=== PATIENT | male | born 1950 | race American Indian/Alaskan Native ===

== ENCOUNTER 2018-10-04 11:22 | Emergency (ER) | payer MEDICARE, OTHER ==
[~2018-10-04] VITALS: Ht 170.2 cm; Wt 116.4 kg
[~2018-10-04 11:22] MED LIST: ASPI81TA52 PO; BUPR300T86 PO; CHOL400T57 PO; EXEN5PEN2 SQ; FAMO-1 PO; GLIM4TAB79 PO; HYDR1TAB PO; IBUP-1984 PO; LISI-644 PO; LORA10CA PO; MELA1CAP PO; METF500T PO; OMEG1CAP54 PO; PIOG45TA PO; ROSU20TA PO; UBID1CAP54 PO; VITA-268 PO; ZIN220C PO; ZOF4T PO; [UNRECOGNIZED DRUG - CODE] PO; vitamin C PO
[2018-10-04 11:57] VITALS: BP 162/54
--- NOTE | 2018-10-04 12:11 | NUR ---
POISON CONTROL CALLED INSTRUCTED TO RECHECK PTS BLOOD SUGAR IN 1HR. SHE STATES PT MIGHT HAVE N/V/D TODAY AND TOMORROW, AND SHOULD NOT HAVE ANY DROP IN BS PT TAKES HIGH DOSES OR OTHER ORAL HYPERGLYCEMIC MEDS. SHE STATES PT COULD TAKE SMALLER DOSES OF OTHER MEDS TODAY OR RESTART TOMORROW. SHE STATE PT CAN BE DCD AFTER BS RECHECK AND ADVISE PT TO CONTACT PMD RE NEXT TRULICITY DOSE.
== END 2018-10-04 13:04 | disposition home or self-care (01) ==
LOC: ER 11:24
DX: T38.3X1A Poisoning by insulin and oral hypoglycemic [antidiabetic] drugs, accidental (unintentional), initial encounter (principal); I25.10 Atherosclerotic heart disease of native coronary artery without angina pectoris; E78.00 Pure hypercholesterolemia, unspecified; I10 Essential (primary) hypertension; I25.2 Old myocardial infarction; E11.9 Type 2 diabetes mellitus without complications; Z95.5 Presence of coronary angioplasty implant and graft; Z79.82 Long term (current) use of aspirin; Z79.899 Other long term (current) drug therapy; Z88.8 Allergy status to other drugs, medicaments and biological substances; Z88.1 Allergy status to other antibiotic agents; Y92.89 Other specified places as the place of occurrence of the external cause
CPT/HCPCS: 82948; 99282

== ENCOUNTER 2019-04-16 19:12 | Observation (INO) | payer OTHER, MEDICARE ==
[~2019-04-16] VITALS: Ht 170.2 cm; Wt 111.0 kg
[~2019-04-16 19:12] MED LIST changes: +BACDS PO; +GLIM4TAB4 PO; -GLIM4TAB79 PO; -ROSU20TA PO; +ROSU20TA2 PO
[2019-04-16 20:13] LABS: CLARITY,URINE CLEAR (Clear); COLOR,URINE YELLOW (Yellow); GLUCOSE, URINE >=1000 mg/dl (Neg); KETONES,URINE NEGATIVE (Neg); LEUKOCYTE ESTERASE ,URINE NEGATIVE (Neg); NITRITES, URINE NEGATIVE (Neg); OCCULT BLOOD,URINE NEGATIVE (Neg); PH,URINE 5.5 (4.8-8.0); PROTEIN,URINE NEGATIVE (Neg); UA COLLECTION TYPE VOIDED; UROBILINOGEN,URINE 0.2 E.U/dL (0.2-1.0)
[2019-04-16 20:20] LABS: BACTERIA,URINE FEW /HPF (Neg); RBC,URINE NONE SEEN /HPF (0-2); SQUAMOUS EPITHELIAL CELL,UR FEW /LPF (FEW); WBC,URINE 0-4 /HPF (0-4)
[2019-04-16] MEDS ORDERED: CefTRIAXone 2gm/D5W 50ml 50 ML IV ONE (20:30)
[2019-04-16] MEDS ORDERED: normal saline 1000ML IV soln IV ONE (20:30)
[2019-04-16 20:59] LABS: ALANINE AMINOTRANSFERASE 32 U/L (12-78); ALBUMIN 3.4 G/DL (3.4-5.0); ALBUMIN/GLOBULIN RATIO 0.8 (1.1-1.5); ALKALINE PHOSPHATASE 93 IU/L (46-116); ANION GAP 12 (8-16); ASPARTATE AMINO TRANSFERASE 17 U/L (10-37); BILIRUBIN,TOTAL 0.6 MG/DL (0.1-1.0); BLOOD UREA NITROGEN 27 MG/DL (7-18); BUN/CREATININE RATIO 17.4 (5.4-32.0); CALCIUM 9.2 MG/DL (8.5-10.1); CHLORIDE 103 MMOL/L (99-107); CREATININE 1.55 MG/DL (0.60-1.10); GLUCOSE 355 MG/DL (70-104); POTASSIUM 4.5 MMOL/L (3.5-5.1); SODIUM 137 MMOL/L (135-145); TOTAL CARBON DIOXIDE 22.5 MMOL/L (24-32); TOTAL PROTEIN 7.5 G/DL (6.4-8.2); eGFR 45 ML/MIN
[2019-04-16 21:00] LABS: PARTIAL THROMBOPLASTIN TIME 24 SECONDS (22-32)
--- NOTE | 2019-04-16 21:00 | NUR ---
pt SBP 77 on right arm and 60 SBP left. Manual bp same. MD notifed. Pt given 2L fluid bolus. SPB increased to 108 SBP.
[2019-04-16 21:04] LABS: BASOPHILS % (AUTO) 0.3 % (0-1); EOSINOPHILS % (AUTO) 0.5 % (0-6); HEMOGLOBIN 13.8 g/dl (14.0-17.9); LYMPHOCYTES # (AUTO) 0.3 X10'3 (1.1-4.8); LYMPHOCYTES % (AUTO) 3.9 % (21-51); MEAN CORPUSCULAR HEMOGLOBIN 29.8 PG (27.0-31.0); MEAN CORPUSCULAR HGB CONC 32.8 g/dL (33.0-36.5); MEAN PLATELET VOLUME 9.2 FL (7.4-10.4); MONOCYTES # (AUTO) 0.1 X10'3 (0-0.9); MONOCYTES % (AUTO) 1.8 % (2-12); NEUTROPHILS # (AUTO) 6.5 X10'3 (1.8-7.7); NEUTROPHILS % (AUTO) 93.5 % (42-75); PLATELET COUNT 182 X10'3 (140-440); RED BLOOD COUNT 4.62 X10'6 (4.70-6.10); WHITE BLOOD COUNT 6.9 X10'3 (4.5-11.0)
[2019-04-16] MEDS ORDERED: normal saline 1000ML IV soln IVB ONE (21:15)
[2019-04-16] MEDS ORDERED: levoFLOXACIN-Levaquin 750MG/D5 150 ML IV STA (21:24)
[2019-04-16] MEDS ORDERED: ondansetron/PF 4mg/2ml inj IV PRN (22:05)
[2019-04-16] MEDS ORDERED: glucagon, human recombinant 1mg kit SUBCUT PRN (22:05)
[2019-04-16] MEDS ORDERED: potassium Cl 20 mEq SR tablet PO PRN ×2 (22:05)
[2019-04-16] MEDS ORDERED: potassium CL 10mEq/100ml bag 100 ML IV PRN ×2 (22:05)
[2019-04-16] MEDS ORDERED: magnesium Cl slow-release 64mg tablet PO PRN (22:05)
[2019-04-16] MEDS ORDERED: dextrose ORAL solution 15 GM/59 ML bottle PO PRN ×2 (22:05)
[2019-04-16] MEDS ORDERED: magnesium 4gm in 100ml NS 100 ML IV PRN (22:05)
[2019-04-16] MEDS ORDERED: dextrose 50%-water 50ml dispensing syringe IV PRN ×2 (22:05)
[2019-04-16] MEDS ORDERED: magnesium hydroxide 30ml (MOM) UD suspension PO PRN (22:05)
[2019-04-16] MEDS ORDERED: acetaminophen 325mg tablet PO PRN (22:05)
[2019-04-16] MEDS ORDERED: mag hydrox/Alum hydrox/simeth 30ml oral suspension PO PRN (22:05)
[2019-04-16] MEDS ORDERED: magnesium 2GM in 50ml NS 50 ML IV PRN (22:05)
[2019-04-16] MEDS ORDERED: MESSAGE TO PHARMACY PO ONE (22:05)
[2019-04-16] MEDS: normal saline 1000ml 1,000 ML IV SCH (22:24)
[2019-04-16 22:40] LABS: HEMOGLOBIN A1C 12.8 % (4.5-6.2)
[2019-04-17] VITALS: BP 85/50
[2019-04-17] MEDS: insulin Lispro (HumaLOG) vial - multi-dose SQ SCH ×4 (00:13→18:52)
[2019-04-17] MEDS ORDERED: HYDROcodone/acetaminophen 10/325mg tab PO PRN (00:45)
[2019-04-17 05:18] VITALS: BP 111/70
[2019-04-17 05:23] LABS: BASOPHILS % (AUTO) 0.2 % (0-1); EOSINOPHILS % (AUTO) 0.1 % (0-6); HEMATOCRIT 36.4 % (42.0-52.0); HEMOGLOBIN 12.2 g/dl (14.0-17.9); LYMPHOCYTES # (AUTO) 0.2 X10'3 (1.1-4.8); LYMPHOCYTES % (AUTO) 2.4 % (21-51); MEAN CORPUSCULAR HEMOGLOBIN 30.4 PG (27.0-31.0); MEAN CORPUSCULAR HGB CONC 33.6 g/dL (33.0-36.5); MEAN CORPUSCULAR VOLUME 90.4 FL (78-98); MEAN PLATELET VOLUME 8.9 FL (7.4-10.4); MONOCYTES # (AUTO) 0.4 X10'3 (0-0.9); MONOCYTES % (AUTO) 4.1 % (2-12); NEUTROPHILS # (AUTO) 8.6 X10'3 (1.8-7.7); NEUTROPHILS % (AUTO) 93.2 % (42-75); PLATELET COUNT 130 X10'3 (140-440); RED BLOOD COUNT 4.03 X10'6 (4.70-6.10); WHITE BLOOD COUNT 9.2 X10'3 (4.5-11.0)
[2019-04-17 05:39] LABS: ALANINE AMINOTRANSFERASE 27 U/L (12-78); ALBUMIN 2.5 G/DL (3.4-5.0); ALBUMIN/GLOBULIN RATIO 0.7 (1.1-1.5); ALKALINE PHOSPHATASE 66 IU/L (46-116); ANION GAP 10 (8-16); ASPARTATE AMINO TRANSFERASE 18 U/L (10-37); BILIRUBIN,TOTAL 0.4 MG/DL (0.1-1.0); BLOOD UREA NITROGEN 24 MG/DL (7-18); CHLORIDE 109 MMOL/L (99-107); CREATININE 1.26 MG/DL (0.60-1.10); GLUCOSE 290 MG/DL (70-104); MAGNESIUM 2.1 MG/DL (1.5-2.4); POTASSIUM 4.6 MMOL/L (3.5-5.1); SODIUM 141 MMOL/L (135-145); TOTAL CARBON DIOXIDE 22.5 MMOL/L (24-32); eGFR 57 ML/MIN
--- NOTE | 2019-04-17 06:31 | NUR ---
Problems reprioritized. Patient report given, questions answered & plan of care reviewed with Valentine ZIEGLER.
--- NOTE | 2019-04-17 06:45 | NUR ---
Patient in room [facility] 340. I have received report from Phu ZIEGLER and had the opportunity to ask questions and assume patient care.
[2019-04-17 07:00] VITALS: BP 113/67
[2019-04-17] MEDS: vitamin D (cholecalciferol) 1,000 unit tablet PO SCH (07:30)
[2019-04-17] MEDS: zinc sulfate 220mg capsule PO SCH (07:30)
[2019-04-17] MEDS: vitamin B comp w/Vit. C tab 1 TAB TABLET PO SCH (07:30)
[2019-04-17] MEDS: loratadine 10mg tablet PO SCH (07:30)
[2019-04-17] MEDS: multivitamins, therapeutics tablet PO SCH (07:30)
[2019-04-17] MEDS: lisinopril 20mg tablet PO SCH (07:31)
[2019-04-17] MEDS: buPROPion SR 150mg tablet PO SCH ×2 (07:31→20:25)
[2019-04-17] MEDS: famotidine 20mg tablet PO SCH (07:31)
[2019-04-17] MEDS: aspirin 81mg tablet.DR PO SCH (07:31)
[2019-04-17] MEDS: OMEGA-3/DHA/EPA/FISH OIL 1 EACH CAPSULE.DR PO SCH (07:32)
[2019-04-17] MEDS: enoxaparin 40mg/0.4ml syringe SQ SCH (07:33)
[2019-04-17] MEDS ORDERED: non-formulary drug (Ubidecarenone/Vit E Acetate (Co Q-10 100 Mg Softgel) 1 EACH) PO SCH (08:00)
[2019-04-17] MEDS: K and/or MAG REPLACEMENT MC SCH (08:00)
[2019-04-17] MEDS ORDERED: VITAMIN C 500 MG PO SCH (08:00)
[2019-04-17] MEDS ORDERED: ROSUVASTATIN CALCIUM 20 MG PO SCH (08:00)
[2019-04-17] MEDS: normal saline 1000ml 1,000 ML IV SCH ×4 (08:01→20:32)
[2019-04-17 11:00] VITALS: BP 123/48
--- NOTE | 2019-04-17 11:00 | NUR ---
patient seen by DR Perez, all cares continue. Diabetic education given to patient and . Stable at time of report
[2019-04-17] MEDS ORDERED: METO-411 PO (14:00)
--- NOTE | 2019-04-17 16:07 | NUR ---
DM consult: Pt with A1c 12.8. Attempted visit with patient at bedside however pt was sleeping and did not wake with verbal cues. Family member at bedside. Written DM ed with referral to outpatient DM class and RD contact information provided. Per H&P pt states he checks his sugars in the morning and they're in the mid to high 100s and pt hasn't ever calibrated his glucometer thus will likely need a new meter. Pt admit with severe hypotension secondary to volume depletion and uncontrolled diabetes resolved with IV fluids per H&P. Pt currently on heart healthy CHO controlled diet with documented 75% PO intake likely meeting nutrient needs. LBM 04/16. No edema or wounds. Will continue to follow. Recommendations: 1) Continue heart healthy CHO controlled diet 2) Monitor need for f/u verbal DM ed 3) Wt per rx Addendum: 04/17/19 at [address] Amended: Links added.
--- NOTE | 2019-04-17 18:05 | NUR ---
Patient in room [facility]. I have received report from Valentine ZIEGLER and had the opportunity to ask questions and assume patient care.
--- NOTE | 2019-04-17 18:14 | NUR ---
Problems reprioritized. Patient report given, questions answered & plan of care reviewed with Phu ZIEGLER.
[2019-04-17 20:00] VITALS: BP 108/53
[2019-04-17] MEDS ORDERED: levoFLOXACIN-Levaquin 750MG/D5 150 ML IV SCH (21:00)
[2019-04-17] MEDS ORDERED: insulin glargine (Lantus) pen - multi-dose SQ SCH (21:00)
[2019-04-17] MEDS ORDERED: atorvastatin 10mg tablet PO SCH (21:00)
[2019-04-17] MEDS ORDERED: insulin glargine (Lantus) pen - multi-dose SQ ONE (21:35)
[2019-04-18] VITALS: BP 116/64
[2019-04-18 05:31] LABS: ALANINE AMINOTRANSFERASE 28 U/L (12-78); ALBUMIN 2.2 G/DL (3.4-5.0); ALBUMIN/GLOBULIN RATIO 0.6 (1.1-1.5); ALKALINE PHOSPHATASE 60 IU/L (46-116); ANION GAP 11 (8-16); ASPARTATE AMINO TRANSFERASE 24 U/L (10-37); BILIRUBIN,TOTAL 0.3 MG/DL (0.1-1.0); BLOOD UREA NITROGEN 15 MG/DL (7-18); BUN/CREATININE RATIO 18.8 (5.4-32.0); CALCIUM 7.8 MG/DL (8.5-10.1); CHLORIDE 109 MMOL/L (99-107); GLUCOSE 104 MG/DL (70-104); MAGNESIUM 1.9 MG/DL (1.5-2.4); POTASSIUM 3.9 MMOL/L (3.5-5.1); SODIUM 141 MMOL/L (135-145); TOTAL CARBON DIOXIDE 21.5 MMOL/L (24-32); TOTAL PROTEIN 5.8 G/DL (6.4-8.2); eGFR > 90 ML/MIN
[2019-04-18 05:43] LABS: BASOPHILS % (AUTO) 0.8 % (0-1); EOSINOPHILS % (AUTO) 0.9 % (0-6); HEMATOCRIT 36.5 % (42.0-52.0); HEMOGLOBIN 12.1 g/dl (14.0-17.9); LYMPHOCYTES # (AUTO) 0.5 X10'3 (1.1-4.8); MEAN CORPUSCULAR HEMOGLOBIN 30.4 PG (27.0-31.0); MEAN CORPUSCULAR HGB CONC 33.1 g/dL (33.0-36.5); MEAN CORPUSCULAR VOLUME 91.9 FL (78-98); MEAN PLATELET VOLUME 9.1 FL (7.4-10.4); MONOCYTES # (AUTO) 0.6 X10'3 (0-0.9); MONOCYTES % (AUTO) 12.8 % (2-12); NEUTROPHILS # (AUTO) 3.6 X10'3 (1.8-7.7); NEUTROPHILS % (AUTO) 74.5 % (42-75); PLATELET COUNT 117 X10'3 (140-440); RED BLOOD COUNT 3.97 X10'6 (4.70-6.10); WHITE BLOOD COUNT 4.8 X10'3 (4.5-11.0)
[2019-04-18] MEDS: normal saline 1000ml 1,000 ML IV SCH (05:57)
--- NOTE | 2019-04-18 06:17 | NUR ---
Problems reprioritized. Patient report given, questions answered & plan of care reviewed with Valentine ZIEGLER.
--- NOTE | 2019-04-18 06:21 | NUR ---
Patient in room [facility] 340. I have received report from Phu ZIEGLER and had the opportunity to ask questions and assume patient care.
[2019-04-18 07:25] VITALS: BP 108/53
[2019-04-18] MEDS: vitamin B comp w/Vit. C tab 1 TAB TABLET PO SCH (07:29)
[2019-04-18] MEDS: enoxaparin 40mg/0.4ml syringe SQ SCH (07:29)
[2019-04-18] MEDS: famotidine 20mg tablet PO SCH (07:30)
[2019-04-18] MEDS: lisinopril 20mg tablet PO SCH (07:30)
[2019-04-18] MEDS: buPROPion SR 150mg tablet PO SCH (07:30)
[2019-04-18] MEDS: vitamin D (cholecalciferol) 1,000 unit tablet PO SCH (07:30)
[2019-04-18] MEDS: zinc sulfate 220mg capsule PO SCH (07:30)
[2019-04-18] MEDS: aspirin 81mg tablet.DR PO SCH (07:30)
[2019-04-18] MEDS: loratadine 10mg tablet PO SCH (07:30)
[2019-04-18] MEDS: multivitamins, therapeutics tablet PO SCH (07:30)
[2019-04-18] MEDS: K and/or MAG REPLACEMENT MC SCH (07:38)
[2019-04-18] MEDS: OMEGA-3/DHA/EPA/FISH OIL 1 EACH CAPSULE.DR PO SCH (07:38)
[2019-04-18] MEDS ORDERED: metoprolol succinate 25mg (24-HOUR) SR. Tablet PO SCH (08:00)
[2019-04-18] MEDS ORDERED: non-formulary drug (Metoprolol Succinate 1 TAB) PO SCH (08:00)
[2019-04-18] MEDS: insulin Lispro (HumaLOG) vial - multi-dose SQ SCH (09:56)
[2019-04-18 11:44] VITALS: BP 96/53
--- NOTE | 2019-04-18 12:23 | NUR ---
patient appears upset at beginning of shift, would not talk about why, but stated that he didn't get much sleep and was not wanting to stay , patient seen by Dr Boston, and wants to go AMA. DR Boston aware. IV removed. patient encouraged to attend Diabetic class. patient stated " I have been a diabetic for 20years been to every class you can think of" Left floor to drive himself home 1230hrs.
== END 2019-04-18 12:20 | disposition left against medical advice (07) ==
LOC: ER 19:13 → SUR 3N 23:11 → CMPBEDREQ 23:16
PROVIDERS: ADMIT Family Medicine; ATTEND Family Medicine
DX: E11.9 Type 2 diabetes mellitus without complications (principal); I25.10 Atherosclerotic heart disease of native coronary artery without angina pectoris; E78.5 Hyperlipidemia, unspecified; I25.2 Old myocardial infarction; Z79.82 Long term (current) use of aspirin; E78.00 Pure hypercholesterolemia, unspecified; I12.9 Hypertensive chronic kidney disease with stage 1 through stage 4 chronic kidney disease, or unspecified chronic kidney disease; N18.9 Chronic kidney disease, unspecified; N39.0 Urinary tract infection, site not specified; Z87.891 Personal history of nicotine dependence
CPT/HCPCS: 36415; 71045; 80053; 81001; 82948; 83036; 83605; 83735; 84145; 85025; 85610; 85730; 87040; 87081; 96365; 96366; 96367; 96372; 99284; G0378; J0696; J1815; J1956; J7030; J1650

== ENCOUNTER 2020-10-17 12:10 | Emergency (ER) | payer MEDICARE, OTHER ==
[~2020-10-17] VITALS: Ht 170.2 cm; Wt 108.2 kg
[~2020-10-17 12:10] MED LIST changes: -BACDS PO; -EXEN5PEN2 SQ; -GLIM4TAB4 PO; +GLIM4TAB7 PO; +METO-411 PO; -ZIN220C PO
[2020-10-17 12:49] LABS: CLARITY,URINE CLEAR (Clear); COLOR,URINE YELLOW (Yellow); GLUCOSE, URINE >=1000 mg/dl (Neg); KETONES,URINE TRACE mg/dl (Neg); LEUKOCYTE ESTERASE ,URINE NEGATIVE (Neg); NITRITES, URINE NEGATIVE (Neg); OCCULT BLOOD,URINE NEGATIVE (Neg); PROTEIN,URINE NEGATIVE (Neg); UROBILINOGEN,URINE 0.2 E.U/dL (0.2-1.0)
[2020-10-17 12:58] LABS: UA COLLECTION TYPE VOIDED
[2020-10-17 13:00] LABS: RBC,URINE 0-2 /HPF (0-2)
[2020-10-17 13:02] LABS: BACTERIA,URINE NONE SEEN /HPF (Neg); SQUAMOUS EPITHELIAL CELL,UR MODERATE /LPF (FEW); WBC,URINE 0-4 /HPF (0-4)
[2020-10-17 13:05] LABS: BASOPHILS % (AUTO) 0.4 % (0-1); EOSINOPHILS # (AUTO) 0.1 X10'3 (0-0.9); EOSINOPHILS % (AUTO) 1.5 % (0-6); HEMATOCRIT 45.2 % (42.0-52.0); HEMOGLOBIN 14.8 g/dl (14.0-17.9); LYMPHOCYTES # (AUTO) 0.9 X10'3 (1.1-4.8); LYMPHOCYTES % (AUTO) 13.7 % (21-51); MEAN CORPUSCULAR HEMOGLOBIN 30.2 PG (27.0-31.0); MEAN CORPUSCULAR HGB CONC 32.8 g/dL (33.0-36.5); MEAN CORPUSCULAR VOLUME 91.9 FL (78-98); MEAN PLATELET VOLUME 8.9 FL (7.4-10.4); MONOCYTES # (AUTO) 0.6 X10'3 (0-0.9); MONOCYTES % (AUTO) 9.8 % (2-12); NEUTROPHILS # (AUTO) 4.8 X10'3 (1.8-7.7); NEUTROPHILS % (AUTO) 74.6 % (42-75); PLATELET COUNT 206 X10'3 (140-440); RED BLOOD COUNT 4.91 X10'6 (4.70-6.10); RED CELL DISTRIBUTION WIDTH 15.3 % (11.5-14.5); WHITE BLOOD COUNT 6.4 X10'3 (4.5-11.0)
[2020-10-17 13:09] LABS: ALANINE AMINOTRANSFERASE 32 U/L (12-78); ALBUMIN 3.7 G/DL (3.4-5.0); ALBUMIN/GLOBULIN RATIO 0.9 (1.1-1.5); ALKALINE PHOSPHATASE 80 IU/L (46-116); ANION GAP 11 (8-16); ASPARTATE AMINO TRANSFERASE 21 U/L (10-37); BILIRUBIN,TOTAL 0.7 MG/DL (0.1-1.0); BLOOD UREA NITROGEN 17 MG/DL (7-18); BUN/CREATININE RATIO 15.5 (5.4-32.0); CALCIUM 8.7 MG/DL (8.5-10.1); CHLORIDE 105 MMOL/L (99-107); GLUCOSE 210 MG/DL (70-104); POTASSIUM 4.3 MMOL/L (3.5-5.1); SODIUM 139 MMOL/L (135-145); TOTAL PROTEIN 7.8 G/DL (6.4-8.2); eGFR 66 ML/MIN
[2020-10-17 14:21] VITALS: BP 130/65
== END 2020-10-17 14:22 | disposition home or self-care (01) ==
LOC: ER 12:11
DX: R00.2 Palpitations (principal); I25.10 Atherosclerotic heart disease of native coronary artery without angina pectoris; E78.00 Pure hypercholesterolemia, unspecified; I10 Essential (primary) hypertension; I25.2 Old myocardial infarction; E11.9 Type 2 diabetes mellitus without complications; Z87.440 Personal history of urinary (tract) infections; Z98.890 Other specified postprocedural states; Z88.1 Allergy status to other antibiotic agents; Z88.8 Allergy status to other drugs, medicaments and biological substances; Z79.82 Long term (current) use of aspirin; Z79.899 Other long term (current) drug therapy
CPT/HCPCS: 36415; 71045; 80053; 81001; 83880; 84484; 85025; 93005; 99285

== ENCOUNTER 2022-07-26 01:10 | Emergency (ER) | payer BC, OTHER ==
[~2022-07-26] VITALS: Ht 170.2 cm; Wt 103.2 kg
[2022-07-26 01:58] LABS: BASOPHILS % (AUTO) 0.5 % (0-1); EOSINOPHILS # (AUTO) 0.1 X10'3 (0-0.9); EOSINOPHILS % (AUTO) 1.8 % (0-6); HEMATOCRIT 42.1 % (42.0-52.0); HEMOGLOBIN 14.3 g/dl (14.0-17.9); LYMPHOCYTES # (AUTO) 1.4 X10'3 (1.1-4.8); LYMPHOCYTES % (AUTO) 17.2 % (21-51); MEAN CORPUSCULAR HEMOGLOBIN 30.5 PG (27.0-31.0); MEAN CORPUSCULAR HGB CONC 33.9 g/dL (33.0-36.5); MEAN CORPUSCULAR VOLUME 89.9 FL (78-98); MEAN PLATELET VOLUME 8.4 FL (7.4-10.4); MONOCYTES % (AUTO) 12.3 % (2-12); NEUTROPHILS # (AUTO) 5.5 X10'3 (1.8-7.7); NEUTROPHILS % (AUTO) 68.2 % (42-75); PLATELET COUNT 190 X10'3 (140-440); RED BLOOD COUNT 4.69 X10'6 (4.70-6.10); RED CELL DISTRIBUTION WIDTH 14.4 % (11.5-14.5); WHITE BLOOD COUNT 8.1 X10'3 (4.5-11.0)
[2022-07-26 02:09] LABS: ALANINE AMINOTRANSFERASE 24 U/L (12-78); ALBUMIN 3.5 G/DL (3.4-5.0); ALBUMIN/GLOBULIN RATIO 0.9 (1.1-1.5); ALKALINE PHOSPHATASE 74 IU/L (46-116); ANION GAP 9 (8-16); ASPARTATE AMINO TRANSFERASE 17 U/L (10-37); BILIRUBIN,TOTAL 0.4 MG/DL (0.1-1.0); BLOOD UREA NITROGEN 19 MG/DL (7-18); BUN/CREATININE RATIO 17.4 (5.4-32.0); CALCIUM 8.7 MG/DL (8.5-10.1); CHLORIDE 103 MMOL/L (99-107); CREATININE 1.09 MG/DL (0.60-1.10); GLUCOSE 344 MG/DL (70-104); POTASSIUM 3.6 MMOL/L (3.5-5.1); SODIUM 138 MMOL/L (135-145); TOTAL CARBON DIOXIDE 26.4 MMOL/L (24-32); TOTAL PROTEIN 7.2 G/DL (6.4-8.2); eGFR 67 ML/MIN
[2022-07-26 02:31] LABS: CLARITY,URINE CLEAR (Clear); COLOR,URINE YELLOW (Yellow); GLUCOSE, URINE >=1000 mg/dl (Neg); KETONES,URINE NEGATIVE (Neg); LEUKOCYTE ESTERASE ,URINE NEGATIVE (Neg); NITRITES, URINE NEGATIVE (Neg); OCCULT BLOOD,URINE NEGATIVE (Neg); PROTEIN,URINE NEGATIVE (Neg); UROBILINOGEN,URINE 0.2 E.U/dL (0.2-1.0)
[2022-07-26 02:42] LABS: UA COLLECTION TYPE CLN CATCH MIDSTREAM
[2022-07-26 02:44] LABS: BACTERIA,URINE NONE SEEN /HPF (Neg); MUCUS STRANDS NONE SEEN /LPF (Neg); RBC,URINE 0-2 /HPF (0-2); SQUAMOUS EPITHELIAL CELL,UR FEW /LPF (FEW); WBC,URINE 0-4 /HPF (0-4)
[2022-07-26 05:28] VITALS: BP 117/60
== END 2022-07-26 05:29 | disposition home or self-care (01) ==
LOC: ER 01:11
DX: R00.2 Palpitations (principal); E78.00 Pure hypercholesterolemia, unspecified; I10 Essential (primary) hypertension; E11.9 Type 2 diabetes mellitus without complications; Z88.1 Allergy status to other antibiotic agents; Z88.8 Allergy status to other drugs, medicaments and biological substances
CPT/HCPCS: 36415; 71045; 80053; 81001; 83880; 84484; 85025; 93005; 99285

== ENCOUNTER 2022-09-21 08:26 | Inpatient (IN) | payer BC, OTHER ==
[~2022-09-21] VITALS: Ht 165.1 cm; Wt 104.5 kg
[2022-09-21 08:49] LABS: BASOPHILS % (AUTO) 0.5 % (0-1); EOSINOPHILS # (AUTO) 0.1 X10'3 (0-0.9); EOSINOPHILS % (AUTO) 1.6 % (0-6); HEMOGLOBIN 13.5 g/dl (14.0-17.9); LYMPHOCYTES # (AUTO) 1.2 X10'3 (1.1-4.8); LYMPHOCYTES % (AUTO) 15.3 % (21-51); MEAN CORPUSCULAR HEMOGLOBIN 29.6 PG (27.0-31.0); MEAN CORPUSCULAR HGB CONC 32.2 g/dL (33.0-36.5); MEAN PLATELET VOLUME 8.3 FL (7.4-10.4); MONOCYTES # (AUTO) 0.9 X10'3 (0-0.9); NEUTROPHILS # (AUTO) 5.8 X10'3 (1.8-7.7); NEUTROPHILS % (AUTO) 71.6 % (42-75); PLATELET COUNT 217 X10'3 (140-440); RED BLOOD COUNT 4.57 X10'6 (4.70-6.10); RED CELL DISTRIBUTION WIDTH 14.7 % (11.5-14.5); WHITE BLOOD COUNT 8.1 X10'3 (4.5-11.0)
[2022-09-21 09:26] LABS: ALANINE AMINOTRANSFERASE 29 U/L (12-78); ALBUMIN 3.4 G/DL (3.4-5.0); ALBUMIN/GLOBULIN RATIO 0.9 (1.1-1.5); ALKALINE PHOSPHATASE 71 IU/L (46-116); ANION GAP 11 (8-16); ASPARTATE AMINO TRANSFERASE 17 U/L (10-37); BILIRUBIN,TOTAL 0.6 MG/DL (0.1-1.0); BLOOD UREA NITROGEN 17 MG/DL (7-18); BUN/CREATININE RATIO 14.8 (5.4-32.0); CALCIUM 8.7 MG/DL (8.5-10.1); CHLORIDE 104 MMOL/L (99-107); CREATININE 1.15 MG/DL (0.60-1.10); GLUCOSE 218 MG/DL (70-104); MAGNESIUM 2.1 MG/DL (1.5-2.4); POTASSIUM 3.8 MMOL/L (3.5-5.1); SODIUM 140 MMOL/L (135-145); TOTAL CARBON DIOXIDE 25.1 MMOL/L (24-32); TOTAL PROTEIN 7.1 G/DL (6.4-8.2); eGFR 63 ML/MIN
[2022-09-21] MEDS ORDERED: aspirin 325mg tablet PO ONE (11:20)
[2022-09-21] MEDS ORDERED: furosemide 40mg/4ml inj IV ONE (12:30)
[2022-09-21] MEDS ORDERED: acetaminophen 325mg tablet PO PRN ×2 (13:15)
[2022-09-21] MEDS ORDERED: HYDROcodone/acetaminophen 5mg/325mg tablet PO PRN (13:15)
[2022-09-21] MEDS ORDERED: potassium Cl 40MEQ/1/2NS 520ml 520 ML IV PRN (13:15)
[2022-09-21] MEDS ORDERED: magnesium hydroxide 30ml (MOM) UD suspension PO PRN (13:15)
[2022-09-21] MEDS ORDERED: mag hydrox/Alum hydrox/simeth 30ml oral suspension PO PRN (13:15)
[2022-09-21] MEDS ORDERED: HYDROcodone/acetaminophen 10/325mg tab PO PRN (13:15)
[2022-09-21] MEDS ORDERED: ondansetron/PF 4mg/2ml inj IV PRN (13:15)
[2022-09-21] MEDS ORDERED: CefTRIAXone/D5W-Rocephin 1gm 50 ML IV ONE (13:15)
[2022-09-21] MEDS ORDERED: potassium Cl 20 mEq SR tablet PO PRN ×2 (13:15)
[2022-09-21] MEDS ORDERED: magnesium Cl slow-release 64mg tablet PO PRN (13:15)
[2022-09-21] MEDS ORDERED: acetaminophen 650mg rectal suppository RC PRN (13:15)
[2022-09-21] MEDS ORDERED: HYDROmorphone inj. 0.5 MG/0.5 ML DISP.SYRIN IV PRN (13:15)
[2022-09-21] MEDS ORDERED: ondansetron 4mg rapidly disintigrating tab PO PRN (13:15)
[2022-09-21] MEDS ORDERED: magnesium 4gm in 100ml NS 100 ML IV PRN (13:15)
[2022-09-21 13:40] LABS: POTASSIUM 3.9 MMOL/L (3.5-5.1)
[2022-09-21] MEDS: docusate sod 100mg capsule PO SCH (20:00)
[2022-09-21] MEDS: K and/or MAG REPLACEMENT MC SCH (20:00)
[2022-09-21] MEDS: furosemide 40mg/4ml inj IV SCH (20:02)
[2022-09-21] MEDS: heparin, porcine 5000 units/ml vial SQ SCH (20:24)
--- NOTE | 2022-09-21 21:43 | NUR ---
report called to floor britt Moreno. pt tx to room [id number]
[2022-09-21 22:22] VITALS: BP 124/70
[2022-09-22 03:12] VITALS: BP 136/59
[2022-09-22 06:29] LABS: ALANINE AMINOTRANSFERASE 22 U/L (12-78); ALBUMIN 3.1 G/DL (3.4-5.0); ALBUMIN/GLOBULIN RATIO 0.9 (1.1-1.5); ALKALINE PHOSPHATASE 73 IU/L (46-116); ANION GAP 9 (8-16); ASPARTATE AMINO TRANSFERASE 23 U/L (10-37); BASOPHILS % (AUTO) 0.6 % (0-1); BILIRUBIN,TOTAL 0.8 MG/DL (0.1-1.0); BLOOD UREA NITROGEN 21 MG/DL (7-18); BUN/CREATININE RATIO 21.6 (5.4-32.0); CALCIUM 8.4 MG/DL (8.5-10.1); CHLORIDE 106 MMOL/L (99-107); CREATININE 0.97 MG/DL (0.60-1.10); EOSINOPHILS # (AUTO) 0.1 X10'3 (0-0.9); EOSINOPHILS % (AUTO) 2.3 % (0-6); GLUCOSE 121 MG/DL (70-104); HEMATOCRIT 41.4 % (42.0-52.0); HEMOGLOBIN 13.5 g/dl (14.0-17.9); LYMPHOCYTES # (AUTO) 1.1 X10'3 (1.1-4.8); LYMPHOCYTES % (AUTO) 18.2 % (21-51); MAGNESIUM 2.1 MG/DL (1.5-2.4); MEAN CORPUSCULAR HEMOGLOBIN 29.8 PG (27.0-31.0); MEAN CORPUSCULAR HGB CONC 32.6 g/dL (33.0-36.5); MEAN CORPUSCULAR VOLUME 91.2 FL (78-98); MONOCYTES # (AUTO) 0.8 X10'3 (0-0.9); MONOCYTES % (AUTO) 13.3 % (2-12); NEUTROPHILS % (AUTO) 65.6 % (42-75); PHOSPHORUS 4.3 MG/DL (2.3-4.5); PLATELET COUNT 208 X10'3 (140-440); POTASSIUM 3.6 MMOL/L (3.5-5.1); RED BLOOD COUNT 4.54 X10'6 (4.70-6.10); RED CELL DISTRIBUTION WIDTH 14.6 % (11.5-14.5); SODIUM 142 MMOL/L (135-145); TOTAL CARBON DIOXIDE 27.3 MMOL/L (24-32); TOTAL PROTEIN 6.7 G/DL (6.4-8.2); WHITE BLOOD COUNT 6.1 X10'3 (4.5-11.0); eGFR 76 ML/MIN
[2022-09-22 07:00] VITALS: BP 106/63
--- NOTE | 2022-09-22 07:07 | NUR ---
Patient in room [facility] 3026. I have received report from jenise de la torre and had the opportunity to ask questions and assume patient care.
[2022-09-22] MEDS: heparin, porcine 5000 units/ml vial SQ SCH (08:00)
[2022-09-22] MEDS: K and/or MAG REPLACEMENT MC SCH (08:00)
[2022-09-22] MEDS: docusate sod 100mg capsule PO SCH (08:38)
[2022-09-22] MEDS: furosemide 40mg/4ml inj IV SCH (08:38)
[2022-09-22 11:00] VITALS: BP 128/67
[2022-09-22] MEDS ORDERED: AMOX-117 PO (11:28)
[2022-09-22] MEDS ORDERED: FURO20TA4 PO (11:28)
--- NOTE | 2022-09-22 12:48 | NUR ---
pt did not need discharge wound pictures he just had them done within 24 hrs. but nothing is open on pt just a diabetic sore on great right toe
--- NOTE | 2022-09-22 12:49 | NUR ---
pt is stable for dc, all dc info gone over, iv is removed and cannula is intact, all belongings taken, pt was wheeled down in a hweel chair and left in a private vehicle.
[2022-09-22] MEDS ORDERED: CefTRIAXone/D5W-Rocephin 1gm 50 ML IV SCH (14:00)
== END 2022-09-22 12:41 | disposition home health service (06) | DRG 291 ==
LOC: ER 08:27 → ED HOLD 13:19 → EDBEDREQ 20:39 → PCU 3S 22:00
PROVIDERS: ADMIT Family Medicine; ATTEND Family Medicine
DX: I11.0 Hypertensive heart disease with heart failure (principal); I50.31 Acute diastolic (congestive) heart failure; J96.01 Acute respiratory failure with hypoxia; L03.031 Cellulitis of right toe; E11.319 Type 2 diabetes mellitus with unspecified diabetic retinopathy without macular edema; E11.40 Type 2 diabetes mellitus with diabetic neuropathy, unspecified; Z20.822 Contact with and (suspected) exposure to COVID-19; E11.621 Type 2 diabetes mellitus with foot ulcer; E78.00 Pure hypercholesterolemia, unspecified; K21.9 Gastro-esophageal reflux disease without esophagitis; I25.10 Atherosclerotic heart disease of native coronary artery without angina pectoris; K76.0 Fatty (change of) liver, not elsewhere classified; L97.509 Non-pressure chronic ulcer of other part of unspecified foot with unspecified severity; I25.2 Old myocardial infarction; Z83.3 Family history of diabetes mellitus; Z88.1 Allergy status to other antibiotic agents; Z95.5 Presence of coronary angioplasty implant and graft; Z88.8 Allergy status to other drugs, medicaments and biological substances
CPT/HCPCS: 36415; 71045; 80053; 82948; 83735; 83880; 84100; 84132; 84484; 85025; 87081; 87811; 93005; 93925; 96374; 99285; A6212; G0378; J0696; J1644; J1940